=== PATIENT | female | born 1930 | race Asian ===

== ENCOUNTER 2020-07-01 09:20 | Day surgery (SDC) | payer MEDICARE, OTHER ==
[~2020-07-01] VITALS: Ht 147.3 cm; Wt 47.3 kg
== END 2020-07-01 11:40 | disposition home or self-care (01) ==
LOC: ORSCSDS 09:20
PROC: 08RJ3JZ Replacement of Right Lens with Synthetic Substitute, Percutaneous Approach (ICD-10-PCS; principal; 2020-07-01)
DX: H25.11 Age-related nuclear cataract, right eye (principal); H21.81 Floppy iris syndrome; I10 Essential (primary) hypertension; Z87.891 Personal history of nicotine dependence; Z79.899 Other long term (current) drug therapy
CPT/HCPCS: A9270; J2001; J2250; J3010; J3301; J7040; V2632